=== PATIENT | female | born 1950 | race Caucasian/White ===

== ENCOUNTER 2018-09-12 07:50 | Day surgery (SDC) | payer MEDICARE, BC ==
[~2018-09-12 07:50] MED LIST: CELEXA40 MG PO; ESTRACE2 MG PO; SYNTHROID125 MCG PO
[2018-09-12 08:11] LABS: HEMATOCRIT 35.2 % (36.0-48.0); MCH 31.9 pg (26.0-34.0); MCHC 34.1 g/dL (31.0-37.0); MCV 93.6 fL (80.0-100.0); MEAN PLATELET VOLUME 10.3 fL (7.4-10.4); RBC 3.76 10x6/uL (4.00-5.40); RDW 13.7 % (11.5-14.5); WBC 4.5 10x3/uL (4.8-10.8)
[2018-09-12 09:05] VITALS: BP 160/78; BMI 25.1
--- NOTE | 2018-09-12 15:49 | NUR ---
DC INSTRUCTIONS GIVEN TO PT/FAMILY. STATE UNDERSTANDIND. DC'D IV CATH FULLY INTACT.
--- NOTE | 2018-09-12 16:01 | NUR ---
PT LEFT UNIT VIA WC AT 1559
--- NOTE | 2018-10-04 14:43 | OP ---
PATIENT NAME: NICOLASA JAMES MEDICAL RECORD: [id number] :48 [facility] DATE: SURGEON: ANDREA WATTERS MD DATE OF OPERATION: 09/12/2018 PREOPERATIVE DIAGNOSIS: Chronic right maxillary, ethmoid, frontal, and sphenoid sinusitis, turbinate hypertrophy, nasal obstruction. POSTOPERATIVE DIAGNOSES: Chronic right maxillary, ethmoid, frontal, and sphenoid sinusitis, turbinate hypertrophy, nasal obstruction. PROCEDURE: Endoscopic right middle meatal antrostomy, right ethmoidectomy, right frontal sinusotomy and sphenoidotomy. SURGEON: Andrea Watters MD ANESTHESIA: General orotracheal. BLOOD LOSS: Less than 5 cc. SPECIMENS: Tissue from the right middle meatus. Cultures from the right maxillary sinus. NASAL PACKING: None. COMPLICATIONS: None. DISPOSITION: Recovery stable. DESCRIPTION OF PROCEDURE: She is brought to the operating room and placed in supine position, sedated and intubated by anesthesia. The table was turned 90 degrees. She was positioned for a sinus surgery. She had been decongested with Afrin preoperatively. The nose were examined using a headlight and nasal speculum, both inferior turbinates, floor of the nose, and the right uncinate lateral nasal wall, and middle turbinate were injected with a total of 1.5 mL of 1% lidocaine 1:100,000 epinephrine. Two Afrin pledgets were placed in each of the nose. She was positioned, prepped and draped in usual fashion for nasal surgery. Then, all the Afrin pledgets were removed. The left side of the nose was examined first using a 0-degree scope, inferior turbinate was large, but the middle meatus was clear, accessory ostia was visible clear open patent about 5 mm in size with no inflammation, no drainage. The nasal vault was clear. The posterior nasal cavity within nasopharynx were normal as well. Then the right side was examined. Again, large inferior turbinate. Some inflammation around the uncinate and edema in the middle meatus. No masses or polyps. The nasal vault was normal. The nasopharynx and choana were normal. Injected the lateral nasal wall and middle turbinate with an additional 0.5 mL of 1% lidocaine with epinephrine on a long 27-gauge needle and placed an Afrin pledget in the middle meatus. I then used a Sullivan to lateralize the middle turbinate and examine the sphenoid ostia. Sphenoid ostia were opened and visualize. I was able to get 7 suction back there, inserted that into the ostia and enlarged the ostia slightly inferiorly and medially, but the sinus was clear and it was opened. There was nothing in the sinus. No drainage or inflammation. The middle turbinate was then medialized. An Afrin pledget was removed. Upbiting forceps were used to remove some of the edematous material around the meatus and the uncinate inferiorly and the edematous inflamed material was sent for path. Then, a OPERATIVE REPORT [id number] NICOLASA JAMES microdebrider was used to take down portion of the uncinate and the inflamed tissue, exposing the maxillary ostia. A curved olive tip suction was inserted was irrigated, filled with saline and then that was suctioned out for cultures. There was no solid material in the sinus examined with a 30-degree scope, the sinus was opened nicely with the microdebrider nice clean opening to that ostia. There was an accessory ostium which was small and patent as well. The visualized mucosa of the sinus was normal. Then, the ethmoid cavity was entered inferomedially with the microdebrider. This was taken down post-more posteriorly through the grand lamella removing all the bone spicules and cleaning up the ethmoid cavity nicely. A long smooth curved olive tip suction was easily inserted up into the frontal sinus duct. This was irrigated with saline as well. It was clear. There was no purulent drainage there. The maxillary sinus and the ethmoid cavity were irrigated repeatedly with 20 cc syringe with saline. The nasopharynx was suctioned with the entire field completely clean. There was no bleeding. Blood pressure was normal. Her eyes were examined and were normal. There was no packing placed. Counts were correct. The Gruenwald was used to take down the inferior redundant portion of the inferior turbinates bilaterally. Suction cautery on a setting of 25 was used to stop any bleeding and both outfractured with a Burna elevator. There was really no bleeding with that. Once that was completed, she was awakened, extubated, and transported to recovery in good condition. No complications. TRANSINT:[id number] Voice Confirmation ID: [id number] DOCUMENT ID: [id number] ANDREA WATTERS MD at 1443 CC: [id number] DICTATION DATE: 09/14/18 1329 MAMMOGRAPHY TECH: 09/14/18 2351 [facility] 09/12/18 [place] [id number] [place] [address]
--- NOTE | 2018-10-04 14:43 | HP ---
PATIENT: NICOLASA JAMES MEDICAL RECORD: [id number] ACCOUNT: [id number] LOCATION:[facility] : 46 ADMISSION DATE: 09/12/18 PCP: SHAREE RODRIGUES MD HISTORY AND PHYSICAL EXAMINATION HISTORY OF PRESENT ILLNESS: Ms. James is 67 years old, has had problems with chronic right-sided pansinusitis probably initially due to a tooth abscess, but the tooth has been extracted and she has continued to have problems, unresponsive to medical management. She is being admitted for right-sided sinus surgery. PAST MEDICAL HISTORY: Hypothyroidism. PAST SURGICAL HISTORY: Includes hysterectomy, cervical spinal fusion, and a lumbar spinal fusion. CURRENT MEDICATIONS: Estrace, Synthroid, sumatriptan. ALLERGIES: No known drug allergies. PHYSICAL EXAMINATION: GENERAL: She is healthy-appearing. FACE: Normal, symmetric, no lesions. EYES: Sclerae and conjunctivae are normal. NOSE: No masses, polyps or drainage. ORAL CAVITY AND OROPHARYNX: Palate is normal. Tongue protrudes in the midline. NECK: No masses, no adenopathy. CHEST: Clear. CARDIOVASCULAR: Regular rate and rhythm, no murmur. EXTREMITIES: Normal. CT shows diffuse sinus disease. IMPRESSION: She is being admitted for right middle meatal antrostomy, ethmoidectomy, right frontal sinusotomy, right sphenoidotomy, and turbinate reduction bilaterally. TRANSINT:[id number] Voice Confirmation ID: [id number] DOCUMENT ID: [id number] JAH WHIPPLE MD at 1443 CC: [id number] DICTATION DATE: 09/09/18 135 [employer] DEVELOPER: 09/09/18 1406 [facility] 09/12/18 [place] [id number] [place] [id number]
== END 2018-09-12 15:59 | disposition home or self-care (01) ==
LOC: D.OPS 07:50 → D.PAN 10:00 → D.OPS 10:30
PROVIDERS: Anesthesiology; ATTEND Otolaryngology
DX: J32.0 Chronic maxillary sinusitis (principal); J32.1 Chronic frontal sinusitis; J32.2 Chronic ethmoidal sinusitis; J32.3 Chronic sphenoidal sinusitis; J34.3 Hypertrophy of nasal turbinates; J34.89 Other specified disorders of nose and nasal sinuses; Z01.812 Encounter for preprocedural laboratory examination